=== PATIENT | male | born 1970 | race Caucasian/White ===

== ENCOUNTER 2021-02-16 12:47 | Emergency (ER) | payer OTHER ==
[~2021-02-16] VITALS: Ht 170.2 cm; Wt 79.4 kg
[2021-02-16 12:52] VITALS: BP 119/78
--- NOTE | 2021-02-16 12:59 | NUR ---
PT W/C TO BED 11
--- NOTE | 2021-02-16 13:13 | NUR ---
PT TAKEN TO X RAY VIA W/C, ACCOMPANIED BY [employer].
--- NOTE | 2021-02-16 13:34 | NUR ---
CARINA Diego at bedside for MSE
[2021-02-16] MEDS ORDERED: KETOROLAC 30 MG/ML VIAL IM ONE (13:35)
[2021-02-16 13:38] VITALS: BP 119/78
--- NOTE | 2021-02-16 13:42 | NUR ---
see complete assessment
[2021-02-16] MEDS ORDERED: IBUP-2213 PO (13:51)
--- NOTE | 2021-02-16 14:17 | NUR ---
PT RIGHT ANKLE WRAPPED WITH 3' OMAR WRAP CMS WNL BEFORE AND AFTER. PT GIVEN CRUTCHES, CRUTCHES ADJUSTED TO PT SIZE AND HEIGHT. PT STATES THAT THEY ALREADY KNOW HOW TO USE CRUTCHES AND SHOWED PROPER DEMENSTRATION OF USAGE OF CRUTCHES. PT HAD NO FURTHER QUESTIONS. RN AND PA NOTIFIED.
--- NOTE | 2021-02-16 14:29 | NUR ---
Patient discharged with v/s stable. Written and verbal after care instructions given and explained. Patient alert, oriented and verbalized understanding of instructions. Ambulatory with CRUTCHES WITH steady gait. All questions addressed prior to discharge. ID band removed. Patient advised to follow up with PMD. Rx of IBUPROFEN given. Patient educated on indication of medication including possible reaction and side effects. Opportunity to ask questions provided and answered.
== END 2021-02-16 14:24 | disposition home or self-care (01) ==
LOC: MED 12:47 → EDBD 12:47 → MED 14:24
DX: M25.571 Pain in right ankle and joints of right foot (principal); K21.9 Gastro-esophageal reflux disease without esophagitis; I10 Essential (primary) hypertension; X50.0XXA Overexertion from strenuous movement or load, initial encounter; Y93.89 Activity, other specified; Y92.89 Other specified places as the place of occurrence of the external cause; Y99.8 Other external cause status
CPT/HCPCS: 73610; 96372; 99283; J1885